=== PATIENT | female | born 1985 | race African-American/Black ===

== ENCOUNTER 2019-02-23 18:59 | Emergency (ER) | payer OTHER, MEDICAID ==
[~2019-02-23] VITALS: Ht 162.6 cm; Wt 83.9 kg
[~2019-02-23 18:59] MED LIST: NKM
--- NOTE | 2019-02-23 19:11 | Emergency Room Report ---
History of Present Illness General Chief Complaint: Lower Back Pain or Injury Source: Patient Present Illness HPI 33-year-old female presents to the emergency department brought by ambulance for acute onset 10 out of 10 severity left ankle pain status post mechanical trip and fall today. She denies hitting her head or having a loss of consciousness. Patient denies midline neck or back pain. Patient reports she heard a pop and felt a pop as well she states she is unable to bear any amount of weight. Patient denies previous history of injury to this extremity. She reports she is able to feel and move her toes of the affected extremity. Patient denies any open wounds or bleeding. She denies paresthesias or skin color changes. Pain is exacerbated with the slightest of movement. Allergies: Coded Allergies: No Known Allergies (Unverified , 02/23/19) Patient History Past Medical History: see triage record Past Surgical History: none Pertinent Family History: none Now: No Reviewed Nursing Documentation: PMH: Agreed; PSxH: Agreed Nursing Documentation-PMH Past Medical History: No Stated History Review of Systems All Other Systems: negative except mentioned in HPI Physical Exam Vital Signs Date Time Temp Pulse Resp B/P (MAP) Pulse Ox O2 Delivery O2 Flow Rate FiO2 02/23/19 18:53 98.8 88 19 139/88 (105) 98 Room Air Sp02 EP Interpretation: reviewed, normal General Appearance: alert, GCS 15, non-toxic, moderate distress Head: normocephalic, atraumatic Eyes: bilateral eye normal inspection, bilateral eye PERRL ENT: hearing grossly normal, normal voice Neck: full range of motion, no bony tend Respiratory: lungs clear, normal breath sounds, speaking full sentences Cardiovascular #1: regular rate, rhythm, normal capillary refill Cardiovascular #2: 2+ dorsalis pedis (L) Musculoskeletal: back normal, other - unable to bear weight, tender - lateral and posterior left ankle, swelling and slight deformity noted. NVI. unable to tolerate ROM testing. Neurologic: alert, oriented x3, responsive, motor strength/tone normal, sensory intact, speech normal, grossly normal Psychiatric: judgement/insight normal Lymphatic: no adenopathy Medical Decision Making PA Attestation Dr. Culver is my supervising Physician whom patient management has been discussed with. Diagnostic Impression: Primary Impression: Trimalleolar fracture of ankle, closed Qualified Codes: S82.852A - Displaced trimalleolar fracture of left lower leg , initial encounter for closed fracture ER Course 33-year-old female presents to the emergency department brought by ambulance for acute onset 10 out of 10 severity left ankle pain status post mechanical trip and fall today. She denies hitting her head or having a loss of consciousness. Patient denies midline neck or back pain. Patient reports she heard a pop and felt a pop as well she states she is unable to bear any amount of weight. Patient denies previous history of injury to this extremity. She reports she is able to feel and move her toes of the affected extremity. Patient denies any open wounds or bleeding. She denies paresthesias or skin color changes. Pain is exacerbated with the slightest of movement. Ddx considered but are not limited to Fracture, dislocation, contusion, Sprain/ Strain/Spasm, Vital signs: are WNL, pt. is afebrile H&PE are most consistent with musculoskeletal injury will perform imaging to r/ o fractures/dislocations. ORDERS: - X-ray Left ankle 3 views - acute fractures of the distal tib and fibula are suspected, per preliminary read in ED, my supervising physician has reviewed, and agrees with my interpretation. This imaging series was sent to [facility] read which determined possible fractures vs. healed in addition to dislocation/sublux of the tibia, Radiologist recommended CT. -CT L ankle without contrast-- trimalleolar fracture per radiology. ED INTERVENTIONS: -5mg Elizabeth PO -30mg IM Toradol -Short leg posterior with sugar tong splint applied to the left ankle by dealer support technician. Pt. remains neurovascularly intact. -Patient is provided with crutches and instructed on their use -5mg Percocet PO Discussed with this patient that her injury is surgical and she will need orthopedic follow-up. Discussed with patient that her primary insurance [employer] has consulted with us and they are requesting that she follow-up with her primary care provider who will provide her a referral with an orthopedic rn. This patient was instructed not to bear any weight or remove the splint that was applied here in the ED. Patient is instructed to use her crutches as demonstrated to her here in the ED. pt. declined a work note and stated she is already off on disability at the moment. DISCHARGE: At this time pt. is stable for d/c to home. Will provide printed patient care instructions, and any necessary prescriptions. Care plan and follow up instructions have been discussed with the patient prior to discharge. Other X-Ray Diagnostic Results Other X-Ray Diagnostic Results : X-Ray ordered: Left Ankle # of Views/Limited Vs Complete: 3 View Indication: Pain EP Interpretation: Yes CINTHIA Xray: Interpretation reviewed, by supervising MD, and agrees with findings. Interpretation: no soft tissue swelling, other - slight bony abnormality and possible dislocation vs. malaligned fracture- requires radiology review Impression: Other - abnormal Electronically Signed by: Ivon Villalta PA-c CT/MRI/US Diagnostic Results CT/MRI/US Diagnostic Results : Imaging Test Ordered: CT Left Ankle without contrast Impression " trimalleolar fracture" per official radiology report- Please see report for specific details. Last Vital Signs Date Time Temp Pulse Resp B/P (MAP) Pulse Ox O2 Delivery O2 Flow Rate FiO2 02/23/19 19:08 98.8 88 19 139/88 (105) 98 Room Air Status: improved Disposition: HOME, SELF-CARE Condition: Stable Scripts Ibuprofen* (MOTRIN*) 600 Mg Tablet 600 MG ORAL THREE TIMES A DAY, #30 TAB 0 Refills Prov: Ivon Villalta 02/23/19 Oxycodone/Acetaminophen 5-325* (PERCOCET 5-325 MG TABLET*) 1 Each Tablet 1 TAB ORAL Q6H PRN for For Pain, #12 TAB 0 Refills Prov: Ivon Villalta 02/23/19 Patient Instructions: Tibial and Fibular Fracture, Adult Additional Instructions: Take medications as directed. !!! Do not drink alcohol, drive, or operate heavy machinery while taking Percocet as this may cause drowsiness !!! [facility] has been contacted regarding your fractures, per your insurance: Follow up with YOUR PRIMARY CARE DOCTOR WHO WILL PROVIDE YOU WITH AN RN BSN within 3 days ---Use your crutches as instructed, DO NOT PUT WEIGHT ON YOUR LEFT ANKLE, DO NOT REMOVE THE SPLINT. Return sooner to ED if new symptoms occur, or current symptoms become worse. Examples are: red swollen toes, excrutiating pain that is getting worse, if your toes become cold to the touch.. - Please note that this Emergency Department Report was dictated using [employer] technology software, occasionally this can lead to erroneous entry secondary to interpretation by the dictation equipment. Ivon Villalta Feb 23, 2019 19:11
[2019-02-23] MEDS ORDERED: HYDROcodone/Acetamin 5/325 tab ORAL ONE (19:15)
[2019-02-23 19:20] VITALS: BP 139/88
--- NOTE | 2019-02-23 19:25 | NUR ---
ED Nurse Note: Patient was BIBA from home due to fall. Patient states felt at the stairs, chelo left ankle. Presented AAO x4, VSS at this time, skin is warm to touch. Papliteal pulse strong on the left foot.
[2019-02-23] MEDS ORDERED: Ketorolac 30mg Inj IM ONE (20:45)
--- NOTE | 2019-02-23 21:52 | Diagnostic Imaging Report ---
Indication: Left ankle pain, trauma Technique: 3 views of the left ankle Comparison: none Findings: There is a fracture of the distal fibula. There is a fracture of the posterior malleolus extending into the medial malleolus. There is posterior subluxation of the talus. Impression: Positive for trimalleolar fracture with associated subluxation, as described This agrees with the preliminary interpretation provided overnight by [facility] service.
--- NOTE | 2019-02-23 22:57 | Diagnostic Imaging Report ---
Indication: Reason For Exam: PAIN Technique: Noncontrast spiral acquisitions obtained through the left ankle. Multiplanar reconstructions were generated. Total dose length product 1031 mGycm. CTDIvol(s) 7 mGy. Radiation dose was minimized using automated exposure control Comparison: Plain radiograph 3 hours earlier Findings: There is a comminuted mostly vertically oriented intra-articular fracture of the distal fibula, predominantly involving the posterior malleolus but also extending into the medial malleolus. The talus is subluxed posteriorly in respect to the nonfractured main articular surface of the talus by about one half bone width. No significant medial or lateral subluxation is evident. There is also an oblique fracture of the distal fibula. This is distracted by about 6 mm and overrides by about 7 mm. The talus, calcaneus, and bones of the midfoot are intact. Only a small amount of joint fluid is evident. There is only minimal medial and lateral soft tissue swelling. Impression: Positive for trimalleolar fracture with associated posterior subluxation/near dislocation of the talus as described Minimal soft tissue swelling Small joint effusion This agrees with the preliminary interpretation provided overnight by [facility] service. The CT scanner at [facility] is accredited by the [employer] and the scans are performed using protocols designed to limit radiation exposure to as low as reasonably achievable to attain images of sufficient resolution adequate for diagnostic evaluation.
[2019-02-23] MEDS ORDERED: oxyCODONE HCL/Acetaminophen 5/325mg ORAL ONE (23:15)
[2019-02-23] MEDS ORDERED: PERCOCET 5-3251 EACH ORAL (23:19)
[2019-02-23] MEDS ORDERED: IBUPROFEN600 MG ORAL (23:19)
[2019-02-23 23:35] VITALS: BP 139/88
--- NOTE | 2019-02-23 23:36 | NUR ---
ED Nurse Note: Pt cleared by health care Provider for discharge. DC instructions/prescription was given and explained to pt and verbalized understanding of teachings. All medical deviecs such as ID band removed. Pt is AAO x4, ambulatory and left with all personal belongings.
== END 2019-02-23 23:36 | disposition home or self-care (01) ==
LOC: EDBD 18:59 → EMR 23:30
DX: S82.852A Displaced trimalleolar fracture of left lower leg, initial encounter for closed fracture (principal); M25.472 Effusion, left ankle; W01.0XXA Fall on same level from slipping, tripping and stumbling without subsequent striking against object, initial encounter; Y92.9 Unspecified place or not applicable
CPT/HCPCS: 29515; 73610; 73700; 96372; 99284; J1885